=== PATIENT | female | born 1990 ===

== ENCOUNTER 2019-07-14 10:44 | Emergency (ER) | payer OTHER ==
[~2019-07-14] VITALS: Ht 180.3 cm; Wt 64.0 kg
== END 2019-07-14 14:53 | disposition home or self-care (01) ==
LOC: ER 10:44
DX: E86.0 Dehydration (principal)

== ENCOUNTER 2019-11-12 15:26 | Emergency (ER) | payer OTHER ==
[~2019-11-12] VITALS: Ht 180.3 cm; Wt 63.5 kg
== END 2019-11-12 17:24 | disposition home or self-care (01) ==
LOC: ER 15:26
DX: M54.5 Low back pain (principal)